=== PATIENT | female | born 1935 ===

== ENCOUNTER 2025-06-22 11:38 | Outpatient (AMB) | payer MEDICARE, OTHER, SELFPAY ==
--- NOTE | 2025-06-22 11:39 | A.PHYSOV_ITS ---
Vital Signs 06/22/25 11:48 Height 5 ft 2 in Weight 160 lb BMI 29.3 Intake Visit Reasons: B/L Knee Injections Intake Note: Patient is a 89 year old female here today for bilateral knee injections. [employer] It Required: No Allergies clindamycin Allergy (Unknown, Verified 06/22/25 11:41) Unknown Penicillins Allergy (Unknown, Verified 06/22/25 11:41) Unknown Sulfa (Sulfonamide Antibiotics) Allergy (Unknown, Verified 06/22/25 11:41) Unknown [facility] Social History Alcohol intake: current Alcohol intake frequency: does not drink Patient Tobacco Use Status: Never used Tobacco Physical Exam Vital Signs: BMI result Body Mass Index 29.3 Office Procedures AMB Knee Injection AMB Knee Injection Procedure Details: Bilateral Knee injection: The risks, benefits and complications of the left knee injection were discussed with the patient including but not limited to increased serum glucose, infection, nerve pain, fat atrophy, pigment augmentation, bleeding and pain. All questions were answered to the patient's satisfaction. Verbal consent was obtained. The patient was eager to proceed. Using aseptic technique with Betadine, ethyl chloride was then used to desensitize the skin. Using a 22-gauge needle 40 mg of Kenalog and 3 mL 2% lidocaine were injected into the knee joint. A Band-Aid was applied. Patient tolerated the procedure well without immediate complication. Postinjection instructions were given. The procedure was repeated on the right. Knee Injection - : Bilateral All charges added?: Procedure code (CPT) selection complete Office Meds Kenalog 40 mg/mL suspension for injection Performing Provider: HERBER White Performing Location: [facility] Administered by: HERBER White on 06/22/25 12:06 Dose Route Admin Location Dispensed Lot Number Expiration Date [facility] [employer] 40 mg intra-articular 1 mL [id number] [employer] Total Dispensed Waste 1 mL 0 % lidocaine (PF) 20 mg/mL (2 %) injection solution Performing Provider: HERBER White Performing Location[facility] Administered by: HERBER White on 06/22/25 12:06 Dose Route Admin Location Dispensed Lot Number Expiration Date [facility] [employer] 60 mg intra-articular 50 mL [id number] Total Dispensed Waste 50 mL 0 % Assessment & Plan Assessment & Plan (1) Bilateral primary osteoarthritis of knee: Code(s): M17.0 - Bilateral primary osteoarthritis of knee Category: Medical Plan Ms. Manzo is a 89-year-old female seen in evaluation today for bilateral knee osteoarthritis. Today she consented to bilateral knee corticosteroid injection. She was given post-injection instructions, recommend: Moist heat compresses for 15 minutes 5 times daily. Continue low-impact activities such as walking, biking and swimming. Follow-up with our office as needed. Thank you for allowing me to participate in the care of your patient. Orders: Orders AMB Knee Injection Today M17.0 - Bilateral primary osteoarthritis of knee Coding Level of Care Code Procedure Only Diagnoses Bilateral primary osteoarthritis of knee M17.0 CPT Codes AMB Knee Injection - Hip/Bursa Injection - : Bilateral ([id number])
[2025-06-22 11:48] VITALS: BMI 29.3
--- OUTSIDE RECORDS SUMMARY | 2025-06-22 15:19 | XMS_ITS | Clinical Summary ---
Author Organization [address] Address [address] [place] [address] Phone Care Team Providers Care Security Control Center Operator Name Role Phone Kaden Stephens MD Primary Care Provider [phone] Allergies Active Allergy Reactions Criticality Noted Date Comments Clindamycin Hcl 01/01/2006 Other Reaction(s): Rash/Dermatitis Nitrofurantoin 04/08/2019 Other Reaction(s): Numbness, tingling or swelling of the lips, tongue or mouth Penicillins Anaphylaxis High 01/01/2006 Sulfamethazine 01/17/2010 Other Reaction(s): Myalgia and Joint Pain Medications UNABLE TO FIND [facility] NATURAL PRODUCTS OR, Take by mouth. CBD 1/2 gummy at bedtime Active melatonin 5 mg capsule Take 10 mg by mouth at bedtime. Patient buy OTC Active anastrozole (ARIMIDEX) 1 mg Take 1 tablet (1 mg total) by mouth 1 (one) time each day 90 tablet 1 025 Active fluticasone propionate (FLONASE) 50 mcg/actuation nasal spray Administer 2 sprays into each nostril 1 (one) time each day. Shake gently. Before first use, prime pump. After use, clean tip and replace cap. 16 g 2 025 Active mometasone (ELOCON) 0.1 % ointment Apply topically at bedtime. 45 g 2 025 Active ondansetron (ZOFRAN) 4 mg tabletIndications:Urin parmjit incontinence, unspecified type,Pure hypercholesterolemia Take 1 tablet (4 mg total) by mouth every 8 (eight) hours if needed for nausea or vomiting. 20 tablet Active omeprazole (PriLOSEC) [address] capsule Take 1 capsule (40 mg total) by mouth 1 (one) time each day. 90 capsule Active amLODIPine (NORVASC) 5 mg tabletIndications:Poor ly controlled blood pressure Take 1 tablet (5 mg total) by mouth 1 (one) time each day. 30 each 025 10/13 Active acetaminophen (TYLENOL) 500 mg tablet Take 2 tablets (1,000 mg total) by mouth every 8 (eight) hours if needed for mild pain or moderate pain. for pain 60 tablet 1 Active lidocaine 0.5% (SOLARCAINE) 0.5 % gel external gel Apply topically 2 (two) times a day. 85 g Active atenoloL (TENORMIN) 25 mg tabletIndications:Poor ly controlled blood pressure TAKE 1 TABLET(25 MG) BY MOUTH 1 TIME EACH DAY 90 tablet 1 Active cholecalciferol (VITAMIN D-3) 50 mcg (2,000 unit) tablet TAKE 1 TABLET BY MOUTH 1 TIME A DAY 90 tablet 1 Active atorvastatin (LIPITOR) 20 mg tablet TAKE 1 TABLET(20 MG) BY MOUTH 1 TIME EACH DAY 90 tablet Active mirabegron (Myrbetriq) 25 mg 24 hr tablet Take 1 tablet (25 mg total) by mouth 1 (one) time each day. 30 each 2 025 07/09 Active Trelegy Ellipta 100-62.5-25 mcg inhaler INHALE 1 PUFF INTO THE LUNGS EVERY DAY 60 each 2 Active albuterol HFA (PROAIR HFA ; PROVENTIL HFA ; VENTOLIN HFA) 90 mcg/actuation inhaler INHALE 2 PUFFS BY MOUTH EVERY 4 HOURS NEEDED FOR WHEEZING OR SHORTNESS OF BREATH 6.7 g 2 Active trimethoprim (TRIMPEX) 100 mg tablet Take 1 tablet (100 mg total) by mouth at bedtime. 90 each 025 08/18 Active sertraline (ZOLOFT) 25 mg tablet TAKE 1 TABLET(25 MG) BY MOUTH 1 TIME EACH DAY 90 tablet Active furosemide (LASIX) 20 mg tablet Take 1 tablet (20 mg total) by mouth 1 (one) time each day. 90 tablet 1 Active sertraline (ZOLOFT) 25 mg tablet Take 1 tablet (25 mg total) by mouth 1 (one) time each day. 30 each 5 025 06/04 Discontinued furosemide (LASIX) 20 mg tablet Take 1 tablet (20 mg total) by mouth 1 (one) time each day. 90 tablet 1 025 06/04 Discontinued furosemide (LASIX) 20 mg tablet TAKE 1 TABLET(20 MG) BY MOUTH 1 TIME EACH DAY 90 tablet 1 025 06/04 Discontinued Active Problems Problem Noted Date Diagnosed Date Volume overload 2024 Hypertensive urgency 2024 Pulmonary vascular congestion 2024 Change in bowel habit 06/23/2024 Gait instability 03/13/2024 Primary osteoarthritis of left knee 03/13/2024 Primary osteoarthritis of both knees 03/13/2024 Aortic valve disorder 03/10/2024 Overview (06/23/2024): Aortic valve disorder Assessment & Plan (11/12/2024 2:00 PM EDT): Spinal stenosis of lumbar region 03/10/2024 Chest pain 03/10/2024 Overview (06/23/2024): Chest pain Class 1 obesity 03/10/2024 Rheumatic aortic regurgitation 03/10/2024 Overview (06/23/2024): Rheumatic aortic regurgitation Absence of bladder continence 08/17/2023 Disease due to severe acute respiratory syndrome coronavirus 2 (SARS-CoV-2) 06/03/2023 Overview (06/23/2024): Problem added by Discern Expert Problem added by Discern Expert Vitamin D deficiency 08/02/2022 Fibroids, submucosal 06/28/2021 Overview (06/23/2024): Last Assessment & Plan: US will show if has recurred. Could consider hyst if recurrent given previously attempted hysteroscopic removal. She agrees. Lichen planus 03/22/2021 Overview (06/23/2024): Last Assessment & Plan: Reviewed findings with patient. Overall well controlled and stable. I reviewed the importance of regular maintenance topical steroid use to prevent symptoms, further scarring. I also explained the importance of regular follow up to ensure she has no evidence of precancerous or cancerous changes and that she is not having side effects from her medication. I reviewed areas of application and amount of medication to use. She will continue nightly mometasone. Postmenopausal bleeding 03/22/2021 Overview (06/23/2024): 01/16/2022 Unremarkable US. Has been fully evaluated. She should follow up with me at her visit in March as scheduled. Can discuss IUD at that visit if she is still having on and off spotting. Last Assessment & Plan: Given ongoing bleeding with recent infectious findings, I recommended she have hysteroscopy at the hospital again. If benign, will consider placement of Mirena IUD in the future if bleeding continues. 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 George Assessment & Plan (11/12/2024 2:00 PM EDT): Centrilobular emphysema (CMS/HCC V24, CMS/HCC V2 8) 12/26/2018 Adjustment disorder with mixed anxiety and depre ssed mood 04/04/2016 Cervical stenosis of spinal canal 09/01/2014 Overview (06/23/2024): Dr. Cannon Lumbar spondylosis 09/01/2014 Overview (06/23/2024): Diffuse, seeing Dr. Amadou Queen, Dr. Cannon Anxiety 04/06/2014 Microscopic hematuria 11/19/2012 Moderate aortic regurgitation 07/05/2012 Overview (06/23/2024): Sees Dr. Gavin Last Assessment & Plan: Mild aortic insufficiency, stable on echo and exam Recurrent UTI 06/04/2012 Overview (06/23/2024): Last Assessment & Plan: Will send culture today given she could only give us a small sample and does not always know when she has a UTI. This could be the cause of the bloody discharge. Stress incontinence 06/04/2012 Syncope 07/25/2010 Overview (06/23/2024): 04/2010. Workup negative for cardiac issues Disorder of bone and cartilage 01/26/2006 Overview (06/23/2024): IMO update Diverticulitis of colon without hemorrhage 01/26 Migraine without aura 01/26/2006 Overview (06/23/2024): IMO update Essential hypertension, benign 01/01/2006 Overview (06/23/2024): Last Assessment & Plan: Slightly elevated today, however she has not taken her medications yet today, no changes at this time. Pure hypercholesterolemia 01/01/2006 Overview (06/23/2024): Last Assessment & Plan: PCP follows this, continue statin Asthma 11/27/2005 Encounters Date Type Department Care Team Description 06/11/2025 Telephone Urogynecology - [address] [place] [address] Jennifer Negron MD 06/05/2025 Results Follow-Up Urogynecology - [address] [place] [address] Jennifer Negron MD 05/28/2025 10:05 AM EST - 05/28/2025 11:59 PM EST Hospital Encounter [facility] Ultrasound [address] [place] [address] Recurrent UTI Discharge Disposition: Home or Self Care 05/20/2025 9:30 AM EDT Office Visit Urogynecology - [address] [phone] Jennifer Negron MD Recurrent UTI (Primary Dx); OAB (overactive bladder); Nocturnal enuresis; Urge incontinence; Urinary frequency; SEDRICK (stress urinary incontinence, female); Urinary urgency 04/24/2025 Telephone Urogynecology [address] [phone] Jennifer Negron MD 04/14/2025 Telephone Urogynecology - [address] [place] [address] Jennifer Negron MD 04/10/2025 Telephone Urogynecology - [address] [place] [address] Jennifer Negron MD from Last 3 Months Immunizations Immunization Administration Dates Next Due H1N1 Inj Preservative Free 07/20/2009 Influenza Quadravalent, MDCK , 0.5ml, preservative free (Flucelvax) 6mo and older 08/17/2023 Influenza trivalent, 0.5mL ( Fluad) 65yo and older 04/14/2021,06/03/2020 Influenza trivalent, 0.5mL, preservative free (Fluarix; FluLaval; Fluzone) ages 6mo and older (Afluria) 3 years and older 05/05/2015,04/28/2014,04/15/2013,04/16,04/11/2011,05/23/2010,04/16/2009 ,05/19/2008,04/30/2007,05/02/2005 Pneumococcal conjugate 13 va lent (Prevnar 13, PCV13) 2mo and older 11/02/2015 Pneumococcal polysaccharide 23 valent (Pneumovax 23) 2yo and older 02/02/2014,05/31/2001 Td Tetanus diptheria (Tdvax) 7yo and older 08/17/2023 Td, Unspecified 05/14/2003 Tdap Tetanus diptheria acell ular pertussis (Boostrix; Adacel) 7yo and older 12/09/2012 Zoster Live 07/22/2008 Surgical History Surgery Date Site/Laterality Comments OTHER SURGICAL HISTORY PROCEDURE: ---- OTHER ----; COMMENT: lung lobectomy COLONOSCOPY 06/28/09 PROCEDURE: HISTORICAL COLONOSCOPY; COMMENT: adenomas; repeat in 6 months under propofol. COLONOSCOPY 12/03/09 [facility] PROCEDURE: IL COLONOSCOPY STOMA DX INCLUDING COLLJ SPEC SPX; COMMENT: several tiny polyps; repeat in three years under propofol COLONOSCOPY 12/06/12 [facility], propofol PROCEDURE: IL COLONOSCOPY STOMA W/RMVL JUAN POLYP/OTH LES SNARE; COMMENT: small adenomas, tics and hemorrhoids. Would not repeat ESOPHAGOGASTRODUODENOSCOPY 03/16/2017 PROCEDURE: IL EGD TRANSORAL BIOPSY SINGLE/MULTIPLE; COMMENT: No esophageal stricture; gastritis. Normal esophageal biopsies; no H. pylori (mild reactive gastropathy) Esophagus dilated with 20 mm Savary dilator (empirical) Medical History Medical History Date Comments Tobacco use disorder 01/09/2006 DX:Tobacco use disorder Emphysematous bleb (CMS/HCC V24, CMS/HCC V28) 01/26/2006 DX:Emphysematous bleb (HCC) Migraine without aura, witho ut mention of intractable migraine without mention of status migrainosus 01/26/2006 DX:Migraine without aura , without mention of intractable migraine without mention of status migrainosus Diverticulitis of colon (wit hout mention of hemorrhage)(562.11) 01/26/2006 DX:Diverticulitis of co christi (without mention of hemorrhage)(562.11) Disorder of bone and cartila ge, unspecified 01/26/2006 DX:Disorder of bone and cart ilage, unspecified Aortic valve disorders 01/26/2006 DX:Aortic valve disorders Stress incontinence 06/04/2012 DX:Stress in continence Recurrent UTI 06/04/2012 DX:Recurrent UTI [facility] of [facility]oscopy 03/16/2017 DX:History of endoscopy; COMMENT: dr salgado; gastritis COPD (chronic obstructive pu lmonary disease) [place] [place] [facility] [place]) DX:COPD (chronic o bstructive pulmonary disease) ([facility]) Anxiety DX:Anxiety Gastritis DX:Gastritis PAD (peripheral artery disea se) ([facility] [place] DX:PAD (peripheral artery di sease) ([facility]) Abnormal mammogram 06/03/2020 DX:Abnormal m ammogram; COMMENT: [facility], US and more eval needed Breast cancer ([facility] [place], [facility] [place]28) 07/02/2020 DX:Breast cancer ([facility]); COMM ENT: 06/11 infiltrating ductal carcinoma Asthma-COPD overlap syndrome ([facility] [place], [facility] [place]) 12/26/2018 DX:Asthma-COPD overlap syndr ome ([facility]) Change in bowel habit DX:Change in bowel habit Encounter for diagnostic col onoscopy due to change in bowel habits DX:Encounter for diagnos tic colonoscopy due to change in bowel habits Esophageal reflux DX:Esophageal reflux Cervical spondylosis without myelopathy DX:Cervical spondylosis with out myelopathy Depressive disorder DX:Depressiv e disorder Hyperlipidemia DX:Hyperlipidemi a Essential hypertension DX:Essent ial hypertension Peripheral edema Family History Medical History Relation Name Comments Breast cancer Mother bilateral Hypertension Mother Breast cancer Mother's side 2 cousins >50 at time of dx Breast cancer Sister 1 bilateral Hypertension Sister 2 Prostate cancer Uncle 1 maternal Other cancer Uncle 2 maternal unknow n primary Colon cancer Neg Hx Ovarian cancer Neg Hx Relation Name Status Comments Daughter Alive DJD, schizophre masoud Father colon infection age 44 Mother breast cancer, HTN Mother's side Sister 1 Sister 2 Sister 3 Alive breast cancer, HTN Son Alive depression, sub stance abuse Uncle 1 Uncle 2 Social History Tobacco Use Types Packs/Day Years Used Date Smoking Tobacco: Former Cigarettes 0.5 54.6 0 1957 - 07/15/2012 Smokeless Tobacco: Never Tobacco Cessation:Counseling Given: Not Answered Alcohol Use Standard Drinks/Week Comments Yes 0 (1 standard drink = 0.6 oz pur e alcohol) Comments No Sex and Gender Information Value Date Recorded Sex Assigned at Not on file Legal Sex Female 8:59 AM EST Gender Identity Not on file Sexual Orientation Not on file Obstetrics History Last Filed Vital Signs Vital Sign Reading Time Taken Comments Blood Pressure 139/77 05/20/2025 9:46 AM EDT Pulse 64 05/20/2025 9:46 AM EDT Temperature 36.4 C (97.6 F) 01/14/2025 2:40 PM EDT Respiratory Rate 14 01/14/2025 2:40 PM EDT Oxygen Saturation 98% 01/14/2025 2:40 PM EDT Inhaled Oxygen Concentration - - Weight 74.8 kg (165 lb) 01/14/2025 2:40 PM EDT Height 157.5 cm (5' 2 ) 05/20/2025 9:46 AM EDT Body Mass Index 30.18 01/14/2025 2:40 PM EDT Plan of Treatment Upcoming Encounters Date Type Department Care Team (Late st Contact Info) Description 06/24/2025 1:30 PM EST Procedure visit Urogynecology - [address] [phone] Jennifer Negron MD [address] [place] [phone] 07/20/2025 1:15 PM EST Office Visit Adult Medicine [place] - [address] [phone] Kaden Stephens MD [address] [place] [address] 09/07/2025 12:45 PM EST Appointment Radiology Department - [place] [address] [place] [address] Health Maintenance Due Date Last Done Comments Zoster Vaccines (1 of 2) 09/16/2008 07/22/2008 RSV Immunization Adult Patients (1 - 1-dose 75+ series) 2012 Medicare Annual Wellness Visit 07/01/2022 Social Influencers of Health Screening 07/01/2022 Falls Risk Assessment 10/13/2025 10/13/2024 Hypertension/CHF/CAD Annual BMP Blood Test 01/06/2026 01/06/2025, 10/29/2024, 02/29/2024, Additional history exists Osteoporosis Screening (Bone Density Screening) 10/14/2026 10/14/2021, 10/03/2019 Cholesterol Screening (Lipid Panel) 10/29/2029 10/29/2024, 04/14/2021 DTaP,Tdap,and Td Vaccines (4 - Td or Tdap) 08/17/2033 08/17/2023, 12/09/2012, 05/14/2003 Pneumococcal Vaccine: 50+ Years Completed 11/02/2015, 02/02/2014, 05/31/2001 COVID-19 Vaccine Discontinued 07/09/2021, , 08/25/2020 Influenza Vaccine Discontinued 08/17/2023, , 06/03/2020, Additional history exists Depression Screening Completed 10/13/2024 HIB Vaccines Aged Out No longer eligi ble based on patient's age to complete this topic HPV Vaccines Aged Out No longer eligi ble based on patient's age to complete this topic Hepatitis A Vaccines Aged Out No long er eligible based on patient's age to complete this topic Hepatitis B Vaccines Aged Out No long er eligible based on patient's age to complete this topic IPV Vaccines Aged Out No longer eligi ble based on patient's age to complete this topic MMR Vaccines Aged Out No longer eligi ble based on patient's age to complete this topic Meningococcal ACWY Vaccine Aged Out N o longer eligible based on patient's age to complete this topic Meningococcal B Vaccine Aged Out No l onger eligible based on patient's age to complete this topic RSV Immunization Patients Under 20 months Aged Out No longer eligible based on patient's age to complete this topic Varicella Vaccines Aged Out No longer eligible based on patient's age to complete this topic Procedures Procedure Name Priority Date/Time Associated Diagnosis Comments US RETROPERITONEAL COMPLETE Routine 05/28/2025 10:28 AM EST Recurrent UTI POC URINE AUTO W/O MICRO Routine 05/20/2025 10:06 AM EDT OAB (overactive bladder) CULTURE URINE Routine 04/14/2025 12:46 PM EDT Bladder pain BASIC METABOLIC PANEL Routine 01/06/2025 2:44 PM EDT Hypervolemia, unspecified hypervolemia type LIPID PANEL WITH REFLEX TO DIRECT LDL Routine 10/29/2024 3:30 PM EDT Encounter for screening for cardiovascular disorders DXA BONE DENSITY STUDY 1+ SITS AXIAL SKEL Routine 10/14/2021 3:24 PM EDT Age-related 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 No evidence of hydronephrosis. 2. Contour abnormality in the left kidney which is not fully characterized. Management depends upon other clinical factors. If there is no previous imaging of the kidneys consider follow-up ultrasound in [address] -------- FINAL REPORT -------- Dictated By: Brandon Carlos Dictated Date: 06/05/2025 07:38 ET Assigned Physician: Brandon Carlos Reviewed and Electronically Signed By: Brandon Carlos Signed Date: 06/05/2025 07:45 ET Workstation ID: [id number] Transcribed By: Self Edit Transcribed Date: 06/05/2025 07:38 ET Narrative 06/05/2025 7:45 AM EST EXAM: RENAL and BLADDER ULTRASOUND INDICATION: Recurrent urinary tract infections. COMPARISON: None available. FINDINGS: ULTRASOUND OF THE KIDNEYS AND BLADDER. KIDNEYS: RIGHT: Size: 8.2 cm in greatest length Collecting system: There is no dilation of the intrarenal collecting system Contour: The renal contour is smooth Cortical thickness: Normal uniform cortical thickness Cortical echogenicity: The cortical echogenicity is within normal limits Masses: There are no suspicious renal masses. Shadowing calculi: There are no shadowing calculi demonstrated Other: Small skin in the right kidney note is made of increased hepatic echogenicity. This could be related to fatty change. LEFT: Size: 8.1 cm in greatest length Collecting system: There is no dilation of the intrarenal collecting system Contour: There is a contour abnormality which is nearly isoechoic with cortex. This is not well characterized. This could measure up to 2.9 cm. Cortical thickness: As described there is a contour abnormality with possible cortical thickening. Cortical echogenicity: The cortical echogenicity is within normal limits Masses: Possible mass in the region of contour abnormality in the upper and mid left kidney not fully characterized. This does not meet criteria for simple cyst. Shadowing calculi: There are no shadowing calculi demonstrated Other: No other significant findings BLADDER: No suspicious abnormality. The bladder is not well distended Color mapping was performed. No ureteral jet was demonstrated on either side Pre-void volume: Not performed Post void volume: Not performed Procedure Note Brandon Carlos MD - 06/05/2025 EXAM: RENAL and BLADDER ULTRASOUND INDICATION: Recurrent urinary tract infections. COMPARISON: None available. FINDINGS: ULTRASOUND OF THE KIDNEYS AND BLADDER. KIDNEYS: RIGHT: Size: 8.2 cm in greatest length Collecting system: There is no dilation of the intrarenal collectingsystem Contour: The renal contour is smooth Cortical thickness: Normal uniform cortical thickness Cortical echogenicity: The cortical echogenicity is within normallimits Masses: There are no suspicious renal masses. Shadowing calculi: There are no shadowing calculi demonstrated Other: Small skin in the right kidney note is made of increased hepaticechogenicity. This could be related to fatty change. LEFT: Size: 8.1 cm in greatest length Collecting system: There is no dilation of the intrarenal collectingsystem Contour: There is a contour abnormality which is nearly isoechoic withcortex. This is not well characterized. This could measure up to 2.9 cm. Cortical thickness: As described there is a contour abnormality withpossible cortical thickening. Cortical echogenicity: The cortical echogenicity is within normallimits Masses: Possible mass in the region of contour abnormality in the upperand mid left kidney not fully characterized. This does not meet criteriafor simple cyst. Shadowing calculi: There are no shadowing calculi demonstrated Other: No other significant findings BLADDER: No suspicious abnormality. The bladder is not well distended Color mapping was performed. No ureteral jet was demonstrated on eitherside Pre-void volume: Not performed Post void volume: Not performed IMPRESSION: 1. No evidence of hydronephrosis. 2. Contour abnormality in the left kidney which is not fullycharacterized. Management depends upon other clinical factors. If there is no previousimaging of the kidneys consider follow-up ultrasound in [address] -------- FINAL REPORT -------- Dictated By: Brandon Carlos Dictated Date: 06/05/2025 07:38 ET Assigned Physician: Brandon Carlos Reviewed and Electronically Signed By: Brandon Carlos Signed Date: 06/05/2025 07:45 ET Workstation ID: [id number] Transcribed By: Self Edit Transcribed Date: 06/05/2025 07:38 ET Jennifer Negron MD [facility] [place] PROCEDURES Final Result * POC Urine Auto W/O Micro (05/20/2025 10:06 AM EDT) Glucose UA POC Negative Negative, Trace mg/dL Bilirubin UA POC Negative Negative Ketones UA POC Negative Negative Specific [place] UA POC 1.010 Blood UA POC Negative Negative PH UA POC 5.5 Protein UA POC Negative Negative mg/dL Urobilinogen UA POC 0.2 E.U./dL 0.2 E.U./dL, 1.0 E.U./dL, 8 , Unable to interpret due to interfering substances mg/dL Nitrite UA POC Negative Negative Leukocytes UA POC Negative Negative Urine Urine specimen obtained by clean catch procedure / Unknown 05/20/2025 10:06 AM EDT Jennifer Negron MD POINT OF CARE TEST ENTER/EDIT OR DERABLES Final Result * (ABNORMAL) Culture urine (04/14/2025 12:46 PM EDT) [facility] Culture, Urine 10,000-49,000 CFU/mL Klebsiella pneumoniae ssp pneumoniae(A) AUTUMN 04/16/2025 11:14 AM EDT [facility] Comment: This is an edited result. Previous organism was Gram negative bacilli on 04/15/2025 at 0842 EDT. Urine Urine specimen obtained by clean catch procedure / Unknown Non-blood Collection / Unknown 04/14/2025 12:46 PM EDT 04/14/2025 12:46 PM EDT Narrative Organism Antibiotic Method Susceptibility Klebsiella pneumoniae ssp pneumoniae Amoxicillin/Clavulanate AUTUMN <=2 ug/ml: Susceptible Klebsiella pneumoniae ssp pneumoniae Ampicillin/Sulbactam AUTUMN 4 ug/ml: Susceptible Klebsiella pneumoniae ssp pneumoniae Piperacillin/Tazobactam AUTUMN <=4 ug/ml: Susceptible Klebsiella pneumoniae ssp pneumoniae Cefazolin (Urine) AUTUMN 2 ug/ml: Susceptible Klebsiella pneumoniae ssp pneumoniae Cefoxitin AUTUMN <=4 ug/ml: Susceptible Klebsiella pneumoniae ssp pneumoniae Ceftazidime AUTUMN <=0.5 ug/ml: Susceptible Klebsiella pneumoniae ssp pneumoniae Ceftriaxone AUTUMN <=0.25 ug/ml: Susceptible Klebsiella pneumoniae ssp pneumoniae Cefepime AUTUMN <=0.12 ug/ml: Susceptible Klebsiella pneumoniae ssp pneumoniae Meropenem AUTUMN <=0.25 ug/ml: Susceptible Klebsiella pneumoniae ssp pneumoniae Amikacin AUTUMN <=1 ug/ml: Susceptible Klebsiella pneumoniae ssp pneumoniae Gentamicin AUTUMN <=1 ug/ml: Susceptible Klebsiella pneumoniae ssp pneumoniae Ciprofloxacin AUTUMN <=0.06 ug/ml: Susceptible Klebsiella pneumoniae ssp pneumoniae Levofloxacin AUTUMN <=0.12 ug/ml: Susceptible Klebsiella pneumoniae ssp pneumoniae Nitrofurantoin AUTUMN <=16 ug/ml: Susceptible Klebsiella pneumoniae ssp pneumoniae Trimethoprim/Sulfamethoxazo le AUTUMN <=20 ug/ml: Susceptible us Kim Floyd NP LAB MICROBIOLOGY - GENERAL ORDERABLES Final Result [facility] [address] [place] [address], [place] [phone] * (ABNORMAL) Basic metabolic panel (01/06/2025 2:44 PM EDT) Sodium 138 133 - 145 mmol/L LAB CHEMISTRY METHOD 01/06/2025 4:33 PM [facility] Potassium 4.4 3.5 - 5.5 mmol/L LAB CHEMISTRY METHOD 01/06/2025 4:33 PM [facility] Chloride 102 96 - 110 mmol/L LAB CHEMISTRY METHOD 01/06/2025 4:33 PM [facility] CO2 28 21 - 32 mmol/L LAB CHEMISTRY METHOD 01/06/2025 4:33 PM [facility] Anion Gap 8 3 - 11 LAB CHEMISTRY METHOD 01/06/2025 4:33 PM [facility] Glucose 102(H) 70 - 100 mg/dL LAB CHEMISTRY METHOD 01/06/2025 4:33 PM [facility] BUN 15 5 - 25 mg/dL LAB CHEMISTRY METHOD 01/06/2025 4:33 PM [facility] Creatinine 0.78 0.50 - 1.10 mg/dL LAB CHEMISTRY METHOD 01/06/2025 4:33 PM [facility] eGFR 74 >=60 mL/min/1. 73m2 LAB CHEMISTRY METHOD 01/06/2025 4:33 PM [facility] Comment:Calculation based on the Chronic Kidney Disease Epidemiology Collaboration (CKD-EPI) equation refit without adjustment for race. BUN/Creatinine Ratio 19.2 LAB CHEMISTRY METHOD 01/06/2025 4:33 PM [facility] Calcium 9.3 8.5 - 10.5 mg/dL LAB CHEMISTRY METHOD 01/06/2025 4:33 PM [facility] Blood Venous blood specimen / Unknown Venipuncture / Unknown 01/06/2025 2:44 PM EDT 01/06/2025 2:44 PM EDT us Kaden Stephens MD LAB BLOOD ORDERABLES Final Resul t [facility] [address] [place] [address], [place] [phone] * (ABNORMAL) Lipid panel with reflex to direct LDL (10/29/2024 3:30 PM EDT) Cholesterol 167 0 - 200 mg/dL LAB CHEMISTRY METHOD 10/29/2024 6:49 PM EDT [facility] Triglycerides 172(H) 0 - 150 mg/dL LAB CHEMISTRY METHOD 10/29/2024 6:49 PM EDT [facility] HDL 66 >=40 mg/dL LAB CHEMISTRY METHOD 10/29/2024 6:49 PM EDT [facility] LDL Calculated 67 0 - 100 mg/dL LAB CHEMISTRY METHOD 10/29/2024 6:49 PM EDT [facility] VLDL Cholesterol Brennan 34.4 mg/dL LAB CHEMISTRY METHOD 10/29/2024 6:49 PM EDT [facility] Non HDL Chol. (LDL+VLDL) 101 <145 mg/dL LAB CHEMISTRY METHOD 10/29/2024 6:49 PM EDT [facility] Chol/HDL Ratio 2.5 0.0 - 4.4 LAB CHEMISTRY METHOD 10/29/2024 6:49 PM EDT [facility] Blood Venous blood specimen / Unknown Venipuncture / Unknown 10/29/2024 3:30 PM EDT 10/29/2024 3:30 PM EDT Pito Padgett NP LAB BLOOD ORDERABLES Final R esult [facility] [address] [place] [address], [place] [phone] * DXA BONE DENSITY STUDY 1+ SITS AXIAL SKEL (10/14/2021 3:24 PM EDT) Anatomical Region Laterality Modality Bone Densitometr y 09/09/2021 11:0 8 AM EST Narrative 10/14/2021 3:41 PM EDT BONE DENSITY (DEXA) Lumbar Spine T-score is 0.2. (SD relative to 20-29 y/o adult) Z-score is 3.1. (SD relative to age matched peers) This is considered normal by WHO criteria. Left Hip T-score is -2.3. Z-score is 0.2. This is considered osteopenia by WHO criteria. Lateral view of the spine demonstrates vertebral heights to be maintained. There is grade 1 spondylolisthesis at L3-4. IMPRESSION: This patient is considered to have osteopenia by WHO criteria. This patient has a 16% risk of major osteoporotic fracture and a 5.4% risk of hip fracture over the next 10 years. (World Health Organization Fracture Risk Assessment) [facility] Department of Internal Medicine recommends using National Osteoporosis Foundation (NOF) guidelines in treatment decisions related to osteoporosis. NOF guidelines suggest considering treatment for postmenopausal women and men aged 50 or older presenting with the following: History of hip or vertebral fracture. T-score = -2.5 (DXA) at the femoral neck, total hip, or spine, after appropriate evaluation to exclude secondary causes. Low bone mass (T-score between -1.0 and -2.5 at the femoral neck or spine) AND a 10-year probability of a hip fracture = 3% OR a 10-year probability of a major osteoporosis-related fracture = 20% based on the [place]-adapted WHO algorithm Please note that all treatment decisions require clinical judgment and consideration of individual patient factors, including patient preferences, co-morbidities, previous drug use, risk factors not captured in the FRAX model (e.g., frailty, falls, vitamin D deficiency, increased bone turnover, interval significant decline in bone density) and possible under- or over-estimation of fracture risk by FRAX. Optional alternative screening schedule based on ericka Thompson., [facility] August 10, 2011 for patients with osteopenia (based on hip BMD T-score) is as follows: * advanced osteopenia (T scores -2.00 to -2.49), BMD testing every year * moderate osteopenia (T scores -1.50 to -1.99), BMD testing every 5 years mild osteopenia or normal BMD (T scores -1.50 and higher), BMD testing every 15 years Procedure Note Nicky Eisenberg MD - 07/11/2022 BONE DENSITY (DEXA) Lumbar Spine T-score is 0.2. (SD relative to 20-29 y/o adult) Z-score is 3.1. (SD relative to age matched peers) This is considered normal by WHO criteria. Left Hip T-score is -2.3. Z-score is 0.2. This is considered osteopenia by WHO criteria. Lateral view of the spine demonstrates vertebral heights to be maintained.There is grade 1 spondylolisthesis at L3-4. IMPRESSION: This patient is considered to have osteopenia by WHO criteria. Thispatient has a 16% risk of major osteoporotic fracture and a 5.4% risk of hip fracture over the next10 years. (World Health Organization Fracture Risk Assessment) [facility] Department of Internal Medicine recommendsusing National Osteoporosis Foundation (NOF) guidelines in treatment decisions related toosteoporosis. NOF guidelines suggest considering treatment for postmenopausal women and menaged 50 or older presenting with the following: History of hip or vertebral fracture. T-score = -2.5 (DXA) at the femoral neck, total hip, or spine, afterappropriate evaluation to exclude secondary causes. Low bone mass (T-score between -1.0 and -2.5 at the femoral neck or spine)AND a 10-year probability of a hip fracture = 3% OR a 10-year probability of a majorosteoporosis-related fracture = 20% based on the [place]-adapted WHO algorithm Please note that all treatment decisions require clinical judgment andconsideration of individual patient factors, including patient preferences, co- morbidities,previous drug use, risk factors not captured in the FRAX model (e.g., frailty, falls, vitaminD deficiency, increased bone turnover, interval significant decline in bone density) andpossible under- or over-estimation of fracture risk by FRAX. Optional alternative screening schedule based on ericka Thompson., [facility] for patients with osteopenia (based on hip BMD T-score) is as follows: * advanced osteopenia (T scores -2.00 to -2.49), BMD testing every year * moderate osteopenia (T scores -1.50 to -1.99), BMD testing every 5years mild osteopenia or normal BMD (T scores -1.50 and higher), BMD testingevery 15 years Amber Montoya MD IMG DXA PROCEDURES Final Result from Last 3 Months or Most Recently Relevant to Health Maintenance Insurance MEDICARE [facility] Care Teams Security Control Center Operator Relationship Specialty Start Date End Date Kaden Stephens MD [address], [place] [id number] PCP - General Internal Medicine 05/12/21
--- OUTSIDE RECORDS SUMMARY | 2025-06-22 15:19 | XMS_ITS ---
Author Name [facility] Organization Unknown History of Medication Use Medication Directions Dispensed Refills Start Date End Date Stat us phenazopyridine (PYRIDIUM) 100 mg tablet Take 1 tablet (100 mg total) by mouth 3 (three) times a day for 10 doses. 01/02/2025 active Myrbetriq 25 mg 24 hr tablet Take 1 tablet (25 mg total) by mouth 1 (one) time each day. 12/29/2024 active furosemide (LASIX) 20 mg tablet Take 1 tablet (20 mg total) by mouth 1 (one) time each day. 11/25/2024 active sertraline (ZOLOFT) 25 mg tablet Take 1 tablet (25 mg total) by mouth 1 (one) time each day. 11/12/2024 active acetaminophen (TYLENOL) 500 mg tablet Take 2 tablets (1,000 mg total) by mouth every 8 (eight) hours if needed for mild pain or moderate pain. for pain 10/13/2024 active amLODIPine (NORVASC) 5 mg tablet Take 1 tablet (5 mg total) by mouth 1 (one) time each day. 10/13/2024 active albuterol HFA (PROAIR HFA ; PROVENTIL HFA ; VENTOLIN HFA) 90 mcg/actuation inhaler Inhale 2 puffs by mouth every 4 (four) hours if needed for wheezing or shortness of breath. 09/08/2024 active fluticasone propionate (FLONASE) 50 mcg/actuation nasal spray Administer 2 sprays into each nostril 1 (one) time each day. Shake gently. Before first use, prime pump. After use, clean tip and replace cap. 09/08/2024 active ciprofloxacin (CIPRO) 250 mg tablet Take 1 tablet (250 mg total) by mouth 2 (two) times a day for 3 days. 08/01/2024 08/05/2024 active mirabegron (Myrbetriq) 25 mg 24 hr tablet Take 1 tablet (25 mg total) by mouth 1 (one) time each day. 07/28/2024 active acetaminophen (TYLENOL) 500 mg tablet Take 2 Tablets by mouth every 8 hours as needed for Pain. 03/31/2024 active ibuprofen (ADVIL,MOTRIN) 800 mg tablet Take 1 Tablet by mouth every 8 hours as needed for Pain. 03/31/2024 active traMADoL (ULTRAM) 50 mg tablet Take 1 Tablet by mouth every 6 hours as needed for Pain. 03/31/2024 active fluticasone-umeclidini um-vilanterol (Trelegy Ellipta) 100-62.5-25 mcg inhaler Inhale 1 puff (100 mcg total) by mouth 1 (one) time each day. 01/30/2024 active clobetasoL (TEMOVATE) 0.05 % ointment Please start her on a clobetasol 0.05% ointment taper - have her apply it to the affected area twice a day for 2 weeks, then daily for 2 weeks, then every other day for 2 weeks, then three times a week, then as needed 01/15/2024 active ondansetron (ZOFRAN) 4 mg tablet Take 1 tablet (4 mg total) by mouth every 8 (eight) hours. 12/12/2023 active albuterol HFA (PROAIR HFA ; PROVENTIL HFA ; VENTOLIN HFA) 90 mcg/actuation inhaler Inhale 2 Puffs into the lungs every 4 hours as needed for Cough or Wheezing. 06/21/2023 active ipratropium-albuteroL (DUONEB) 0.5-2.5 mg/3 mL nebulizer solution Inhale 3 mL into the lungs every 6 hours as needed (SOB/wheezing). 06/21/2023 active amitriptyline (ELAVIL) 10 mg tablet Take 1 Tablet by mouth at bedtime. 05/24/2023 active atenoloL (TENORMIN) 25 mg tablet Take 1 tablet (25 mg total) by mouth 1 (one) time each day. 05/24/2023 active cholecalciferol (VITAMIN D-3) 50 mcg (2,000 unit) tablet Take 1 tablet (2,000 Units total) by mouth 1 (one) time each day. 05/24/2023 active meloxicam (MOBIC) 15 mg tablet Take 1 tablet (15 mg total) by mouth 1 (one) time each day. 05/24/2023 active omeprazole (PriLOSEC) [address] capsule Take 1 capsule (40 mg total) by mouth 1 (one) time each day. 05/24/2023 active potassium chloride 20 mEq tablet extended release Take 1 tablet by mouth 1 (one) time each day. 05/24/2023 active amLODIPine (NORVASC) 10 mg tablet 05/21/2023 active lidocaine HCL 3 % cream Apply 1 Squirt topically 3 times daily as needed (pain). 02/13/2023 active lidocaine 0.5% (SOLARCAINE) 0.5 % gel external gel Apply topically 2 (two) times a day. 02/12/2023 active atorvastatin (LIPITOR) 20 mg tablet TAKE 1 TABLET(20 MG) BY MOUTH 1 TIME EACH DAY 10/19/2022 active triamterene-hydroCHLOR Othiazide (DYAZIDE) 37.5-25 mg per capsule Take 1 capsule by mouth 1 (one) time each day. 09/08/2022 active cetirizine (ZyrTEC) 10 mg tablet Take 1 tablet (10 mg total) by mouth 1 (one) time each day. 03/24/2022 active mometasone (ELOCON) 0.1 % ointment APPLY NIGHTLY IN A THIN LAYER TO THE VULVA 02/28/2022 active sertraline (ZOLOFT) 100 mg tablet 1-2 po qhs 05/25/2021 active anastrozole (ARIMIDEX) 1 mg Take 1 tablet (1 mg total) by mouth 1 (one) time each day 03/10/2021 active fluticasone propionate (FLONASE) 50 mcg/actuation nasal spray 2 sprays each nostril twice daily x 1 week then once daily as needed. 10/20/2020 active melatonin 5 mg capsule Take 10 mg by mouth at bedtime. Patient buy OTC active UNABLE TO FIND MISC NATURAL PRODUCTS OR, Take by mouth. CBD 1/2 gummy at bedtime active Allergies Allergen Reaction Severity Comment Documented Date Source Statu s NITROFURANTOIN Other Reaction(s): Numbness, tingling or swelling of the lips, tongue or mouth 04/08/2019 [facility] active SULFAMETHAZINE Other Reaction(s): Myalgia and Joint Pain 01/17/2010 [facility] active PENICILLINS ANAPHYLAXIS 01/01/2006 [facility] ac tive CLINDAMYCIN HCL Other Reaction(s): Rash/Dermatiti s [facility] Problems Problem Status Onset Date Problem Type Date of Resolution Source Lumbar spondylosis active 2014-08-23 0 ProblemAct [facility] Chest pain active 2024-02-21 9 ProblemAct [facility] 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 1 ProblemAct [facility] Gait instability active 2024-02-22 2 ProblemAct [facility] Class 1 obesity active 2024-02-21 9 ProblemAct [facility] Cervical stenosis of spinal canal active 2014-08-23 0 ProblemAct [facility] Postmenopausal bleeding active 2021-02-22 1 ProblemAct [facility] Absence of bladder continence active 2023-07-24 6 ProblemAct [facility] Recurrent UTI active 2012-05-23 3 ProblemAct [facility] Bladder pain active EncounterDiagnosisAct [facility] Aortic valve disorder active 2024-02-21 9 ProblemAct [facility] Disorder of bone and cartilage active 7 ProblemAct [facility] Hypertensive urgency active 5 ProblemAct [facility] Asthma active 8 ProblemAct [facility] Fibroids, submucosal active 7 ProblemAct [facility] Breast cancer (CMS/HCC V24, CMS/HCC V28) active 2020-06-22 1 ProblemAct [facility] Diverticulitis of colon without hemorrhage active 7 ProblemAct [facility] Pulmonary vascular congestion active 5 ProblemAct [facility] Adjustment disorder with mixed anxiety and depressed mood active 2016-03-23 3 ProblemAct [facility] Change in bowel habit active 2 ProblemAct [facility] Pure hypercholesterolemia active 2005-12-21 2 ProblemAct [facility] Spinal stenosis of lumbar region active 2024-02-21 9 ProblemAct [facility] Primary osteoarthritis of both knees active 2024-02-22 2 ProblemAct [facility] Microscopic hematuria active 2012-10-23 0 ProblemAct [facility] Essential hypertension, benign active 2005-12-21 2 ProblemAct [facility] Stress incontinence active 2012-05-23 3 ProblemAct [facility] Moderate aortic regurgitation active 2012-06-22 4 ProblemAct [facility] Volume overload active 5 ProblemAct [facility] Centrilobular emphysema ([facility] V24, [facility] V28) active 6 ProblemAct [facility] Syncope active 3 ProblemAct [facility] Rheumatic aortic regurgitation active 2024-02-21 9 ProblemAct [facility] Vitamin D deficiency active 2022-07-23 1 ProblemAct [facility] Migraine without aura active 7 ProblemAct [facility] Disease due to severe acute respiratory syndrome coronavirus 2 (SARS-CoV-2) active 2023-05-23 2 ProblemAct [facility] Asthma-COPD overlap syndrome ([facility] V24, [facility] V28) active 6 ProblemAct [facility] Primary osteoarthritis of left knee active 2024-02-22 2 ProblemAct [facility] Herpes active 2020-06-23 9 ProblemAct [facility] Anxiety active 2014-03-23 5 ProblemAct [facility] Immunizations Vaccine Date Source Lot Number Status Influenza Quadravalent, MDCK , 0.5ml, preservative free (Flucelvax) 6mo and older 08/17/2023 [facility] [id number] completed Td Tetanus diptheria (Tdvax) 7yo and older 08/17/2023 [facility] [id number] completed Influenza trivalent, 0.5mL ( Fluad) 65yo and older 04/14/2021 [facility] [id number] completed Influenza trivalent, 0.5mL ( Fluad) 65yo and older 06/03/2020 [facility] [id number] completed Pneumococcal conjugate 13 va lent (Prevnar 13, PCV13) 2mo and older 11/02/2015 [facility] [id number] complet ed Influenza trivalent, 0.5mL, preservative free (Fluarix; FluLaval; Fluzone) ages 6mo and older (Afluria) 3 years and older 05/05/2015 [facility] [id number] completed Influenza trivalent, 0.5mL, preservative free (Fluarix; FluLaval; Fluzone) ages 6mo and older (Afluria) 3 years and older 04/28/2014 [facility] [id number] completed Pneumococcal polysaccharide 23 valent (Pneumovax 23) 2yo and older 02/02/2014 [facility] [id number] com pleted Influenza trivalent, 0.5mL, preservative free (Fluarix; FluLaval; Fluzone) ages 6mo and older (Afluria) 3 years and older 04/15/2013 [facility] [id number] completed Tdap Tetanus diptheria acell ular pertussis (Boostrix; Adacel) 7yo and older 12/09/[facility] [id number] completed Influenza trivalent, 0.5mL, preservative free (Fluarix; FluLaval; Fluzone) ages 6mo and older (Afluria) 3 years and older 04/16/2012 [facility] [id number] completed Influenza trivalent, 0.5mL, preservative free (Fluarix; FluLaval; Fluzone) ages 6mo and older (Afluria) 3 years and older 04/11/2011 [facility] [id number] completed Influenza trivalent, 0.5mL, preservative free (Fluarix; FluLaval; Fluzone) ages 6mo and older (Afluria) 3 years and older 05/23/2010 [facility] completed H1N1 Inj Preservative Free 07/20/2009 [facility] [id number] completed Influenza trivalent, 0.5mL, preservative free (Fluarix; FluLaval; Fluzone) ages 6mo and older (Afluria) 3 years and older 04/16/2009 [facility] [id number] completed Zoster Live 07/22/2008 [facility] [id number] completed Influenza trivalent, 0.5mL, preservative free (Fluarix; FluLaval; Fluzone) ages 6mo and older (Afluria) 3 years and older 05/19/2008 [facility] [id number] completed Influenza trivalent, 0.5mL, preservative free (Fluarix; FluLaval; Fluzone) ages 6mo and older (Afluria) 3 years and older 04/30/2007 [facility] [id number] completed Influenza trivalent, 0.5mL, preservative free (Fluarix; FluLaval; Fluzone) ages 6mo and older (Afluria) 3 years and older 05/02/2005 [facility] completed Td, Unspecified 05/14/2003 [facility] completed Pneumococcal polysaccharide 23 valent (Pneumovax 23) 2yo and older 05/31/2001 [facility] com pleted
--- OUTSIDE RECORDS SUMMARY | 2025-06-22 15:19 | XMS_ITS | Encounter Summary ---
Author Organization [facility] Address [address] [place] [address] Care Team Providers Care Light Rail Operator Name Role Phone Kaden Stephens MD Primary Care Provider [phone] Encounter Details Date Type Department Care Team (Late Contact Info) Description 06/11/2025 Telephone Urogynecology - [place] [address] [place] [address] Jennifer Negron MD [address] [facility] [address] [place] [address] Social History Tobacco Use Types Packs/Day Years Used Date Smoking Tobacco: Former Cigarettes 0.5 54.6 0 1957 - 07/15/2012 Smokeless Tobacco: Never Alcohol Use Standard Drinks/Week Comments Yes 0 (1 standard drink = 0.6 oz pur e alcohol) Comments No Sex and Gender Information Value Date Recorded Sex Assigned at Not on file Legal Sex Female 8:59 AM EST Gender Identity Not on file Sexual Orientation Not on file documented as of this encounter Plan of Treatment Upcoming Encounters Date Type Department Care Team (Late Contact Info) Description 06/24/2025 1:30 PM EST Procedure visit Urogynecolog[address] [phone] Jennifer Negron MD [address] [facility] [address] [place] [address] 07/20/2025 1:15 PM EST Office Visit [facility] - [address] [phone] Kaden Stephens MD [address] [place] [address] 09/07/2025 12:45 PM EST Appointment Radiology Department - [address] [phone] documented as of this encounter Visit Diagnoses Not on filedocumented in this encounter Additional Health Concerns Assessment Noted Time PHQ-9 Depression Total Score: 0 10/14/19 25 2:00 PM EDT documented as of this encounter Care Teams Light Rail Operator Relationship Specialty Start Date End Date Kaden Stephens MD [address] [place] [address] PCP - General Internal Medicine 05/12/21 documented as of this encounter
--- OUTSIDE RECORDS SUMMARY | 2025-06-22 15:19 | XMS_ITS | Clinical Summary ---
Author Organization [facility] Address [address] [facility] [address] [place] [address] Phone Care Team Providers Care Hammersmith Helper Name Role Phone Unavailable Primary Care Provider Unavailabl e Social History Tobacco Use Types Packs/Day Years Used Date Smoking Tobacco: Never Assessed Comments Unknown Sex and Gender Information Value Date Recorded Sex Assigned at Not on file Legal Sex Female 2:00 PM EDT Gender Identity Not on file Sexual Orientation Not on file Plan of Treatment Health Maintenance Due Date Last Done Comments Pneumococcal Vaccine: 50+ Years (3 of 3 - PCV) 04/16/2020 04/16/2019, 04/30/2002 Diabetes: Hemoglobin A1C 04/03/2023 Diabetes: Ophthalmology Exam 04/03/2023 03/10/2019 Diabetes: Pedal Pulse Checked 04/03/2023 Diabetes: Sensory Foot Exam 04/03/2023 Diabetes: Visual Foot Exam 04/03/2023 Influenza Vaccine (#1) 2025 0, 03/28/2017 Hepatitis B Vaccine Aged Out No longe r eligible based on patient's age to complete this topic Insurance Medicare [facility] Medicare [facility]
--- OUTSIDE RECORDS SUMMARY | 2025-06-22 15:19 | XMS_ITS | Encounter Summary ---
Author Organization [facility] Address [address] [place] [address] Care Team Providers Care Diver Pumper Name Role Phone Kaden Stephens MD Primary Care Provider [phone] Reason for Referral * Imaging (Routine) - Authorized Specialty Diagnoses / Procedures Referred By Contac constantine Referred To Contact Radiology Diagnoses Abnormal ultrasound of kidney Procedures US Retroperitoneal Limited Jennifer Negron MD [address] [facility] [address] [place] [address] Phone: tel: fax: [facility] Referral ID Status Reason Start Date Expiration Date V isits Requested Visits Authorized [id number] Authorized 06/05/2025 06/05/2026 1 1 Encounter Details Date Type Department Care Team (Late st Contact Info) Description 06/05/2025 Results Follow-Up Urogynecology - [place] [address] [place] [address] Jennifer Negron MD [address] [facility] [address] [place] [address] Social History Tobacco Use Types Packs/Day Years [...] 1:30 PM EST Procedure visit Urogynecology - [address] [phone] Jennifer Negron MD [address] [facility] [address] [place] [address] 07/20/2025 1:15 PM EST Office Visit [facility] - [address] [phone] Kaden Stephens MD [address] [place] [address] 09/07/2025 12:45 PM EST Appointment Radiology Department - [address] [phone] Scheduled Orders Name Type Priority Associated Diagnoses Orde r Schedule US Retroperitoneal Limited Imaging Routine Abnormal ultrasound of kidney Expected: 09/05/2025, Expires: 06/05/2026 documented as of this encounter Visit Diagnoses Diagnosis Abnormal ultrasound of kidney- Primary documented in this encounter Additional Health Concerns Assessment Noted Time PHQ-9 Depression Total Score: 0 10/14/19 25 2:00 PM EDT documented as of this encounter Care Teams Diver Pumper Relationship Specialty Start Date End Date Kaden Stephens MD [address] [place] [address] PCP - General Internal Medicine 05/12/21 documented as of this encounter
== END 2025-06-22 11:58 | disposition home or self-care (01) ==
LOC: HO.HPHYS 11:38
PROVIDERS: PCP Internal Medicine; Visit Provider Physician Assistant
DX: M17.0 Bilateral primary osteoarthritis of knee (principal)
CPT/HCPCS: 20610

== ENCOUNTER → 2025-06-22 11:38 | Outpatient (BNVA) | payer MEDICARE, OTHER, SELFPAY | PROVIDERS: PCP Internal Medicine; Visit Provider Physician Assistant | CPT/HCPCS: 20610; J2003; J3301 ==